=== PATIENT | male | born 1965 | race Caucasian/White ===

== ENCOUNTER 2021-11-24 17:54 | Emergency (ER) | payer OTHER ==
[2021-11-24 18:21] VITALS: BP 161/91; PULSE 72; TEMP 98.1; BMI 29.0
== END 2021-11-24 19:05 | disposition home or self-care (01) ==
LOC: FER 17:54
DX: M79.602 Pain in left arm (principal)
CPT/HCPCS: 73030-TC-LT-FY; 73060-TC-LT-FY; 99284-25